=== PATIENT | female | born 1955 | race American Indian/Alaskan Native ===

== ENCOUNTER 2019-06-29 12:48 | Observation (INO) | payer MEDICAID ==
--- NOTE | 2019-06-29 14:50 | Emergency Department Report ---
HPI - General Chief Complaint: Abdominal Pain Time Seen by Provider: 06/29/19 14:48 - HPI HPI: 63-year-old -German female presents to the emergency department via EMS from [facility] with complaint of a 4 to 5-day history of generalized abdominal pain. She also has been having progressively worsening abdominal distention. She denies any chest pain, shortness of breath, fever, nausea, vomiting, dysuria, vaginal bleeding or discharge. However, the patient does say that she has not had a bowel movement in the past 4 days. She currently has stage IV colon and liver cancer for which she is undergoing chemotherapy via transfusion, but she has missed the last session secondary to her incarceration. Patient denies any other past medical history but she has been here about 4 years ago and there appears to be a record of hypertension and COPD. She has not taken anything, nor received anything, for her symptoms prior to arrival today. ED Past Medical Hx - Past Medical History Previous Medical History?: Yes Hx Hypertension: Yes Hx Congestive Heart Failure: No Hx Diabetes: No Hx Renal Disease: Yes (renal insufficiency) Hx Psychiatric Treatment: Yes (Anxiety) Hx Asthma: Yes Hx COPD: No Hx HIV: No Additional medical history: anxiety - Social History Smoking Status: Current Every Day Smoker - Medications Home Medications: Home Medications Medication Instructions Recorded Confirmed Last Taken Type traZODone [Desyrel] 25 mg PO QHS PRN #30 tablet 06/07/14 04/10/15 Unknown Rx Albuterol *Only Ed* [Proventil 2.5 mg IH Q4H PRN #1 box 04/10/15 Unknown Rx 0.5% NEBS] Albuterol INH(or & Nicu Only) 2 puff IH QID PRN #1 inhalation 04/10/15 Unknown Rx [ProAir HFA Inhaler] Amlodipine Besylate [Norvasc] 10 mg PO BID 04/10/15 04/10/15 Unknown History Citalopram Hydrobromide [celeXA] 40 mg PO DAILY 04/10/15 04/10/15 Unknown History HYDROcodone/APAP 5-325 [[place] 1 each PO Q6HR PRN #20 tablet 04/10/15 Unknown Rx 5/325] lisinopriL [Zestril TAB] 20 mg PO QDAY 04/10/15 04/10/15 Unknown History predniSONE [Deltasone] 40 mg PO QDAY 5 Days tab 04/10/15 Unknown Rx ED Review of Systems ROS: Stated complaint: ABDOMINAL PAIN/FLUID ON STOMACH Other details as noted in HPI Comment: All other systems reviewed and negative Constitutional: denies: chills, fever Eyes: denies: eye pain, vision change ENT: denies: ear pain, throat pain Respiratory: denies: cough, shortness of breath Cardiovascular: denies: chest pain, palpitations Gastrointestinal: abdominal pain, constipation. denies: nausea, vomiting Genitourinary: denies: dysuria, discharge Musculoskeletal: denies: back pain, arthralgia Neurological: denies: headache, weakness Physical Exam - Physical Exam Physical Exam: GENERAL: The patient is well-developed well-nourished. HENT: Normocephalic. Atraumatic. Patient has moist mucous membranes. EYES: Extraocular motions are intact. NECK: Supple. Trachea is midline. CHEST/LUNGS: Clear to auscultation. There is no respiratory distress noted. HEART/CARDIOVASCULAR: Regular. There is no tachycardia. There is no murmur. ABDOMEN: Abdomen is soft. Generalized abdominal tenderness to palpation. There is moderate to severe abdominal distention. Patient has normal bowel sounds. SKIN: Skin is warm and dry. NEURO: The patient is awake, alert, and oriented. The patient is cooperative. The patient has no focal neurologic deficits. Normal speech. MUSCULOSKELETAL: There is no tenderness or deformity. There is no evidence of acute injury. ED Medical Decision Making - Lab Data Result diagrams: 06/29/19 15:46 06/29/19 15:46 - Radiology Data Radiology results: report reviewed, image reviewed interpreted by me: Abdominal x-ray shows some nonspecific bowel gas dilatation. CT ABDOMEN AND PELVIS WITHOUT IV CONTRAST INDICATION: Abd pain. COMPARISON: None available. TECHNIQUE: All CT scans at this facility use dose modulation, automated exposure control, iterative reconstruction or weight based dosing, when appropriate, to reduce radiation dose to as low as reasonably achievable. FINDINGS: Lung Bases: There are small bilateral pleural effusions. There are bilateral noncalcified pulmonary nodules which are concerning for metastatic disease. Skeletal System: No acute abnormality. Chronic thoracic and lumbar compression deformities are noted. ABDOMEN: Liver: Within the periphery of the liver, there are 2 heterogeneous hypodense lesions which contain calcifications. The larger the posterior right hepatic lobe measures 4 cm on series 2 image 44. Smaller than the subpleural anterior liver is seen best on image 59 of the same series. Gallbladder: There appears to be a stone in the gallbladder. There is borderline gallbladder wall edema. Bile Ducts: There is no intrahepatic biliary dilatation. The common duct is mildly dilated. Pancreas: No significant abnormality. Spleen: No significant abnormality. Adrenals: No significant abnormality. Right Kidney: Hyperdense lesion in the upper pole cortex is likely a hyperdense cyst but is nonspecific. Left Kidney: No significant abnormality. Upper GI tract: No significant abnormality. Lymph Nodes: No significant adenopathy. Aorta: No significant abnormality. Additional Findings: There is large volume ascites. There is some stranding and nodularity in the mesentery/omentum. There is anasarca. PELVIS: Colon: There is circumferential irregular wall thickening within the distal colon at the rectosigmoid junction with mild surrounding stranding and perirectal adenopathy. Diverticulosis is noted. Urinary Bladder and Distal Ureters: The bladder is decompressed, limiting its evaluation. Appendix: No significant abnormality. Lymph Nodes: No significant adenopathy. Additional Findings: Large volume ascites. There appears to be a left ovarian cyst. IMPRESSION: 1. Small effusions, large volume ascites, and anasarca. It would be difficult to exclude mild carcinomatosis given the nodularity along the peritoneum/omentum. This could be better characterized with intravenous contrast. 2. Metastatic pulmonary nodules in the bases. There are 2 metastatic lesions in the liver. 3. Primary colon carcinoma at the rectosigmoid junction with extension into the mesentery and local adenopathy. - Medical Decision Making This patient presents to the emergency department from [facility] with complaint of abdominal pain, constipation and what appears to be some volume overload. Patient's labs show some renal insufficiency and a urinary tract infection. CT scan of the abdomen and pelvis with IV contrast shows small effusions, large volume ascites and anasarca. There could be some mild carcinomatosis. There are metastatic pulmonary nodules at the bases and 2 metastatic lesions in the liver seen. There is primary colon carcinoma at the rectosigmoid junction with extension into the mesentery and local adenopathy. The patient will be admitted to the hospital for paracentesis and further evaluation and treatment and was accepted for admission by the hospitalist, Dr. Damico. - Differential Diagnosis Ascites, Malignancy, Bowel Obstruction, Constipation Critical Care Time: No Critical care attestation.: If time is entered above; I have spent that time in minutes in the direct care of this critically ill patient, excluding procedure time. ED Disposition Clinical Impression: Renal insufficiency, Anasarca Ascites Qualifiers: Ascites type: malignant Qualified Code(s): R18.0 - Malignant ascites Abdominal pain Qualifiers: Abdominal location: generalized Qualified Code(s): R10.84 - Generalized abdominal pain Disposition: 09 OP ADMIT IP TO THIS HOSP Is pt being admited?: Yes Condition: Fair Time of Disposition: 21:48
[2019-06-29] MEDS ORDERED: MORPHINE 4 MG/1 ML INJ IV ONE (14:51)
--- NOTE | 2019-06-29 15:22 | XRay Report ---
ABDOMEN 2 VIEWS INDICATION / CLINICAL INFORMATION: Abd pain. COMPARISON: None available. FINDINGS: BOWEL: Multiple loops of slightly dilated gastrointestinal tract without convincing evidence of obstr uction or ileus. FREE AIR / EXTRALUMINAL GAS: None seen. CALCIFICATIONS: No significant abnormal calcifications. ADDITIONAL FINDINGS: None. LUNGS: Visualized lungs show no significant abnormality. SKELETAL STRUCTURES: No significant abnormality. IMPRESSION: 1. Abnormal but nonspecific intestinal gas pattern Signer Name: Prashant Neal MD Signed: 06/29/2019 3:18 PM Workstation Name: [id number]
[2019-06-29 15:46] LABS: Bacteria,Urine 2+ /HPF (Negative); Bilirubin,Urine NEG (Negative); Blood,Urine MOD (Negative); Color,Urine Amber (Yellow); Mucus,Urine 2+ /HPF; Urobilinogen,Urine < 2.0 mg/dL (<2.0)
[2019-06-29 15:47] LABS: WBC,Urine > 182.0 /HPF (0.0-6.0)
[2019-06-29] MEDS ORDERED: cefTRIAXone/NS 1 GM/50 ML 1 GM/50 ML BAG IV ONE (15:50)
[2019-06-29 17:00] LABS: Basophils % (Auto) 0.2 % (0.0-1.8); Eosinophils % (Auto) 0.2 % (0.0-4.3); Hematocrit 33.9 % (30.3-42.9); Hemoglobin 11.2 gm/dl (10.1-14.3); Lymphocytes # (Auto) 0.6 K/mm3 (1.2-5.4); Lymphocytes % (Auto) 6.3 % (13.4-35.0); Mean Corpuscular HGB Conc 33 % (30-34); Mean Corpuscular Volume 85 fl (79-97); Monocytes % (Auto) 9.7 % (0.0-7.3); Platelet Count 481 K/mm3 (140-440); Red Blood Count 3.97 M/mm3 (3.65-5.03); Red Cell Distribution Width 15.9 % (13.2-15.2)
[2019-06-29 17:10] LABS: INR 1.16 (0.87-1.13)
[2019-06-29 17:23] LABS: Albumin 2.4 g/dL (3.9-5); Bilirubin,Direct 0.3 mg/dL (0-0.2); Calcium 8.7 mg/dL (8.4-10.2)
[2019-06-29 17:29] LABS: Alanine Aminotransferase < 5 units/L (7-56)
--- NOTE | 2019-06-29 19:32 | Cat Scan Report ---
CT ABDOMEN AND PELVIS WITHOUT IV CONTRAST INDICATION: Abd pain. COMPARISON: None available. TECHNIQUE: All CT scans at this facility use dose modulation, automated exposure control, iterative reconstructi on or weight based dosing, when appropriate, to reduce radiation dose to as low as reasonably achieva ble. FINDINGS: Lung Bases: There are small bilateral pleural effusions. There are bilateral noncalcified pulmonary n odules which are concerning for metastatic disease. Skeletal System: No acute abnormality. Chronic thoracic and lumbar compression deformities are noted . ABDOMEN: Liver: Within the periphery of the liver, there are 2 heterogeneous hypodense lesions which contain c alcifications. The larger the posterior right hepatic lobe measures 4 cm on series 2 image 44. Smalle r than the subpleural anterior liver is seen best on image 59 of the same series. Gallbladder: There appears to be a stone in the gallbladder. There is borderline gallbladder wall mer ma. Bile Ducts: There is no intrahepatic biliary dilatation. The common duct is mildly dilated. Pancreas: No significant abnormality. Spleen: No significant abnormality. Adrenals: No significant abnormality. Right Kidney: Hyperdense lesion in the upper pole cortex is likely a hyperdense cyst but is nonspecif ic. Left Kidney: No significant abnormality. Upper GI tract: No significant abnormality. Lymph Nodes: No significant adenopathy. Aorta: No significant abnormality. Additional Findings: There is large volume ascites. There is some stranding and nodularity in the mes entery/omentum. There is anasarca. PELVIS: Colon: There is circumferential irregular wall thickening within the distal colon at the rectosigmoid junction with mild surrounding stranding and perirectal adenopathy. Diverticulosis is noted. Urinary Bladder and Distal Ureters: The bladder is decompressed, limiting its evaluation. Appendix: No significant abnormality. Lymph Nodes: No significant adenopathy. Additional Findings: Large volume ascites. There appears to be a left ovarian cyst. IMPRESSION: 1. Small effusions, large volume ascites, and anasarca. It would be difficult to exclude mild carcin omatosis given the nodularity along the peritoneum/omentum. This could be better characterized with i ntravenous contrast. 2. Metastatic pulmonary nodules in the bases. There are 2 metastatic lesions in the liver. 3. Primary colon carcinoma at the rectosigmoid junction with extension into the mesentery and local a denopathy. Signer Name: Elmer Guzman MD Signed: 06/29/2019 7:27 PM Workstation Name: [id number]
[2019-06-29] MEDS ORDERED: MAGNESIUM HYDROXIDE (MOM) ORAL LIQD UDC PO PRN (22:22)
[2019-06-29] MEDS ORDERED: ACETAMINOPHEN 325 MG TAB PO PRN (22:22)
[2019-06-29] MEDS ORDERED: ONDANSETRON 4 MG/2 ML INJ IV PRN (22:22)
--- NOTE | 2019-06-29 23:08 | History and Physical Report ---
History of Present Illness Date of examination: 06/29/19 Date of admission: 06/29/19 21:48 Chief complaint: Abdominal pain/Distension History of present illness: 63 year old female who is currently incarcerated with known history of colon and liver cancer seen in the ER complaining of abdominal pain. Abdominal pain is generalized . This has been ongoing for the past few days. She has had some nausea but no vomiting. She states she has not had a bowel movement in 4-5 days. Denies any fever or chills. Patient has been on chemotherapy for the liver and colon cancer in the past however she has not continued with chemotherapy because of her current incarceration. Evaluation in the ER reveals ascites. Urinalysis reveals urinary tract infection. She is also found to have some renal insufficiency. Past History Past Medical History: cancer (h/o liver and colon ca.), COPD, hypertension Past Surgical History: No surgical history Social history: smoking (former smoker) Family history: no significant family history Medications and Allergies Allergies Allergy/AdvReac Type Severity Reaction Status Date / Time No Known Allergies Allergy Verified 06/29/19 13:53 Home Medications Medication Instructions Recorded Confirmed Last Taken Type traZODone [Desyrel] 25 mg PO QHS PRN #30 tablet 06/07/14 04/10/15 Unknown Rx Albuterol *Only Ed* [Proventil 2.5 mg IH Q4H PRN #1 box 04/10/15 Unknown Rx 0.5% NEBS] Albuterol INH(or & Nicu Only) 2 puff IH QID PRN #1 inhalation 04/10/15 Unknown Rx [ProAir HFA Inhaler] Amlodipine Besylate [Norvasc] 10 mg PO BID 04/10/15 04/10/15 Unknown History Citalopram Hydrobromide [celeXA] 40 mg PO DAILY 04/10/15 04/10/15 Unknown History HYDROcodone/APAP 5-325 [[place] 1 each PO Q6HR PRN #20 tablet 04/10/15 Unknown Rx 5/325] lisinopriL [Zestril TAB] 20 mg PO QDAY 04/10/15 04/10/15 Unknown History predniSONE [Deltasone] 40 mg PO QDAY 5 Days tab 04/10/15 Unknown Rx Active Meds: Active Medications Acetaminophen (Tylenol) 650 mg PO Q4H PRN PRN Reason: Pain MILD(1-3)/Fever >100.5/GAMBLE Ceftriaxone Sodium (Rocephin/Ns 1 Gm/50 Ml) 1 gm in 50 mls @ 100 mls/hr IV Q24 HR MAGALIS; Protocol Magnesium Hydroxide (Milk Of Magnesia) 30 ml PO Q4H PRN PRN Reason: Constipation Morphine Sulfate (Morphine) 2 mg IV Q4H PRN PRN Reason: Pain, Moderate (4-6) Ondansetron HCl (Zofran) 4 mg IV Q8H PRN PRN Reason: Nausea And Vomiting Sodium Chloride (Sodium Chloride Flush Syringe 10 Ml) 10 ml IV BID MAGALIS Sodium Chloride (Sodium Chloride Flush Syringe 10 Ml) 10 ml IV PRN PRN PRN Reason: LINE FLUSH Review of Systems Constitutional: no fever, no chills Ears, nose, mouth and throat: no nasal congestion, no sore throat Cardiovascular: no chest pain, no palpitations Respiratory: no cough, no shortness of breath Gastrointestinal: abdominal pain, constipation, no nausea, no vomiting, no diarrhea Genitourinary Female: no dysuria, no hematuria Musculoskeletal: no neck pain, no low back pain Exam - Constitutional Vitals: Temp Pulse Resp BP Pulse Ox 98.3 F 104 H 16 93/51 90 06/29/19 14:54 06/29/19 22:45 06/29/19 22:45 06/29/19 22:45 06/29/19 22:45 General appearance: Present: no acute distress, well-nourished - EENT Eyes: Present: PERRL, EOM intact ENT: hearing intact, clear oral mucosa, dentition normal - Neck Neck: Present: supple, normal ROM - Respiratory Respiratory effort: normal Respiratory: bilateral: CTA - Cardiovascular Rhythm: regular Heart Sounds: Present: S1 & S2 - Extremities Extremities: no ischemia, pulses intact, No edema, Full ROM Peripheral Pulses: within normal limits - Abdominal General gastrointestinal: Present: soft, non-tender, distended, normal bowel sounds, other (fluid thrill +) - Integumentary Integumentary: Present: clear, warm, dry - Musculoskeletal Musculoskeletal: strength equal bilaterally - Psychiatric Psychiatric: appropriate mood/affect, intact judgment & insight, cooperative - Neurologic Neurologic: CNII-XII intact, moves all extremities Results - Labs CBC & Chem 7: 06/29/19 15:46 06/29/19 15:46 Labs: Abnormal lab results 06/29/19 06/29/19 06/29/19 Range/Units 15:28 15:46 15:46 RDW 15.9 H (13.2-15.2) % Plt Count 481 H (140-440) K/mm3 Lymph % (Auto) 6.3 L (13.4-35.0) % [place] % (Auto) 9.7 H (0.0-7.3) % Lymph # 0.6 L (1.2-5.4) K/mm3 [place] # 1.0 H (0.0-0.8) K/mm3 Seg Neutrophils % 83.6 H (40.0-70.0) % Seg Neutrophils # 8.5 H (1.8-7.7) K/mm3 PT 15.0 H (12.2-14.9) Sec. INR 1.16 H (0.87-1.13) BUN (7-17) mg/dL Creatinine (0.7-1.2) mg/dL Direct Bilirubin (0-0.2) mg/dL ALT (7-56) units/L Total Protein (6.3-8.2) g/dL Albumin (3.9-5) g/dL Lipase (13-60) units/L Urine WBC (Auto) > 182.0 H (0.0-6.0) /HPF U Epithel Cells (Auto) 39.0 H (0-13.0) /HPF 06/29/19 06/29/19 Range/Units 15:46 15:46 RDW (13.2-15.2) % Plt Count (140-440) K/mm3 Lymph % (Auto) (13.4-35.0) % [place] % (Auto) (0.0-7.3) % Lymph # (1.2-5.4) K/mm3 [place] # (0.0-0.8) K/mm3 Seg Neutrophils % (40.0-70.0) % Seg Neutrophils # (1.8-7.7) K/mm3 PT (12.2-14.9) Sec. INR (0.87-1.13) BUN 29 H (7-17) mg/dL Creatinine 1.7 H (0.7-1.2) mg/dL Direct Bilirubin 0.3 H (0-0.2) mg/dL ALT < 5 L (7-56) units/L Total Protein 5.6 L (6.3-8.2) g/dL Albumin 2.4 L (3.9-5) g/dL Lipase 4 L (13-60) units/L Urine WBC (Auto) (0.0-6.0) /HPF U Epithel Cells (Auto) (0-13.0) /HPF Assessment and Plan - Patient Problems (1) Abdominal pain Current Visit: Yes Status: Acute Qualifiers: Abdominal location: generalized Qualified Code(s): R10.84 - Generalized abdominal pain Plan to address problem: Possibly secondary to ascites causing abdominal distention. Patient has known history of colon and liver cancer. She will be placed on analgesic medication as needed for pain control. (2) Ascites Current Visit: Yes Status: Acute Qualifiers: Ascites type: malignant Qualified Code(s): R18.0 - Malignant ascites Plan to address problem: Patient will need paracentesis. Will consider consulting interventional radiology for paracentesis later in the a.m. (3) Renal insufficiency Current Visit: Yes Status: Acute Plan to address problem: We will monitor BUN and creatinine. We will also consider nephrology consult (4) DVT prophylaxis Current Visit: No Status: Chronic Plan to address problem: Patient placed on sequential compression device. (5) Full code status Current Visit: Yes Status: Acute
[2019-06-30] MEDS: MORPHINE 2 MG/1 ML INJ IV PRN (04:59)
[2019-06-30 11:01] LABS: Basophils % (Auto) 0.1 % (0.0-1.8); Eosinophils % (Auto) 0.3 % (0.0-4.3); Hematocrit 33.7 % (30.3-42.9); Hemoglobin 10.7 gm/dl (10.1-14.3); Lymphocytes # (Auto) 0.4 K/mm3 (1.2-5.4); Lymphocytes % (Auto) 3.4 % (13.4-35.0); Mean Corpuscular HGB Conc 32 % (30-34); Mean Corpuscular Volume 86 fl (79-97); Platelet Count 449 K/mm3 (140-440); Red Cell Distribution Width 15.3 % (13.2-15.2)
[2019-06-30 11:09] LABS: INR 1.14 (0.87-1.13)
[2019-06-30 11:17] LABS: Calcium 8.6 mg/dL (8.4-10.2)
[2019-06-30] MEDS: cefTRIAXone/NS 1 GM/50 ML 1 GM/50 ML BAG IV SCH (11:30)
--- NOTE | 2019-06-30 13:10 | Progress Note ---
Assessment and Plan /Abdominal pain Possibly secondary to ascites causing abdominal distention and costipation. Patient has known history of metastatic colon and liver cancer. She will be placed on analgesic medication as needed for pain control. order for paracentesis, ascitis fluid for cell count and Cx for possible SBP /Ascites with possible SBP Patient will need paracentesis. ordered for US guided paracentesis today ordered for ascitic fluid gm stain, cx - cont abx for now / [place] - ATN vs vasomotor nephropathy We will monitor BUN and creatinine. nephrology consulted, ordered renal US Cr was 0.6 on May/2019 per her oncologist /Stage IV colon cancer with metastasis to liver - outpt f/u with Dr Guzmán /Moderate PCM from underlying malignancy - nutrition supplement / DVT prophylaxis Patient placed on sequential compression device. /Full code status Brief history: 63-year-old with medical history significant for stage IV colon cancer and liver cancer was on chemotherapy for same however has been recently incarcerated unable to get chemotherapy presented with complaints of abdominal pain and abdominal distention. Her Cr was 0.6 on May/2019 per her oncologist. she is admitted for ascitis and [place]. Subjective Date of service: 06/30/19 Interval history: Patient seen and examined c/o abdominal pain, had paracentesis today tolerating diet Objective - Constitutional General appearance: Present: mild distress - EENT Eyes: PERRL, EOM intact ENT: hearing intact, clear oral mucosa Ears: bilateral: normal - Neck Neck: supple, normal ROM - Respiratory Respiratory effort: normal Respiratory: bilateral: CTA - Cardiovascular Rhythm: regular Heart Sounds: Present: S1 & S2. Absent: gallop, rub Extremities: pulses intact, No edema, normal color, Full ROM - Gastrointestinal General gastrointestinal: Present: soft, tender (no sign opf peritoneal irritati on), non-distended, normal bowel sounds - Genitourinary Female genitourinary: normal - Integumentary Integumentary: clear, warm, dry - Musculoskeletal Musculoskeletal: 1, strength equal bilaterally - Neurologic Neurologic: moves all extremities - Psychiatric Psychiatric: memory intact, appropriate mood/affect, intact judgment & insight - Labs CBC & Chem 7: 06/30/19 10:44 07/01/19 10:02 Labs: Abnormal lab results 06/29/19 06/29/19 06/29/19 Range/Units 15:28 15:46 15:46 WBC (4.5-11.0) K/mm3 RDW 15.9 H (13.2-15.2) % Plt Count 481 H (140-440) K/mm3 Lymph % (Auto) 6.3 L (13.4-35.0) % [place] % (Auto) 9.7 H (0.0-7.3) % Lymph # 0.6 L (1.2-5.4) K/mm3 [place] # 1.0 H (0.0-0.8) K/mm3 Seg Neutrophils % 83.6 H (40.0-70.0) % Seg Neutrophils # 8.5 H (1.8-7.7) K/mm3 PT 15.0 H (12.2-14.9) Sec. INR 1.16 H (0.87-1.13) APTT (24.2-36.6) Sec. BUN (7-17) mg/dL Creatinine (0.7-1.2) mg/dL Glucose (65-100) mg/dL Direct Bilirubin (0-0.2) mg/dL ALT (7-56) units/L Total Protein (6.3-8.2) g/dL Albumin (3.9-5) g/dL Lipase (13-60) units/L Urine WBC (Auto) > 182.0 H (0.0-6.0) /HPF U Epithel Cells (Auto) 39.0 H (0-13.0) /HPF 06/29/19 06/29/19 06/30/19 Range/Units 15:46 15:46 10:44 WBC 12.4 H (4.5-11.0) K/mm3 RDW 15.3 H (13.2-15.2) % Plt Count 449 H (140-440) K/mm3 Lymph % (Auto) 3.4 L (13.4-35.0) % [place] % (Auto) 8.0 H (0.0-7.3) % Lymph # 0.4 L (1.2-5.4) K/mm3 [place] # 1.0 H (0.0-0.8) K/mm3 Seg Neutrophils % 88.2 H (40.0-70.0) % Seg Neutrophils # 10.9 H (1.8-7.7) K/mm3 PT (12.2-14.9) Sec. INR (0.87-1.13) APTT (24.2-36.6) Sec. BUN 29 H (7-17) mg/dL Creatinine 1.7 H (0.7-1.2) mg/dL Glucose (65-100) mg/dL Direct Bilirubin 0.3 H (0-0.2) mg/dL ALT < 5 L (7-56) units/L Total Protein 5.6 L (6.3-8.2) g/dL Albumin 2.4 L (3.9-5) g/dL Lipase 4 L (13-60) units/L Urine WBC (Auto) (0.0-6.0) /HPF U Epithel Cells (Auto) (0-13.0) /HPF 06/30/19 06/30/19 Range/Units 10:44 10:44 WBC (4.5-11.0) K/mm3 RDW (13.2-15.2) % Plt Count (140-440) K/mm3 Lymph % (Auto) (13.4-35.0) % [place] % (Auto) (0.0-7.3) % Lymph # (1.2-5.4) K/mm3 [place] # (0.0-0.8) K/mm3 Seg Neutrophils % (40.0-70.0) % Seg Neutrophils # (1.8-7.7) K/mm3 PT (12.2-14.9) Sec. INR 1.14 H (0.87-1.13) APTT 37.0 H (24.2-36.6) Sec. BUN 36 H (7-17) mg/dL Creatinine 1.7 H (0.7-1.2) mg/dL Glucose 106 H (65-100) mg/dL Direct Bilirubin (0-0.2) mg/dL ALT (7-56) units/L Total Protein (6.3-8.2) g/dL Albumin (3.9-5) g/dL Lipase (13-60) units/L Urine WBC (Auto) (0.0-6.0) /HPF U Epithel Cells (Auto) (0-13.0) /HPF - Imaging and cardiology Abdominal x-ray: report reviewed CT scan - abdomen: report reviewed
--- NOTE | 2019-06-30 15:31 | Consultation ---
History of Present Illness - Reason for Consult acute renal failure - History of Present Illness 63-year-old with medical history significant for stage IV colon cancer and liver cancer was on chemotherapy for same however has been recently incarcerated unable to get chemotherapy presented with complaints of abdominal pain and abdominal distention. She reports constipation though previously experienced diarrhea denies any nausea vomiting. She denies any NSAID use. She denies any decreased urine output. She denies any fevers chills denies any headaches. She denies any hematuria or bleeding from any orifice. She denies any shortness of breath Past History Past Medical History: cancer (h/o liver and colon ca.), COPD, hypertension Past Surgical History: No surgical history Social history: smoking (former smoker) Family history: no significant family history Medications and Allergies Allergies Allergy/AdvReac Type Severity Reaction Status Date / Time No Known Allergies Allergy Verified 06/29/19 13:53 Home Medications Medication Instructions Recorded Confirmed Last Taken Type traZODone [Desyrel] 25 mg PO QHS PRN #30 tablet 06/07/14 04/10/15 Unknown Rx Albuterol *Only Ed* [Proventil 2.5 mg IH Q4H PRN #1 box 04/10/15 Unknown Rx 0.5% NEBS] Albuterol INH(or & Nicu Only) 2 puff IH QID PRN #1 inhalation 04/10/15 Unknown Rx [ProAir HFA Inhaler] Amlodipine Besylate [Norvasc] 10 mg PO BID 04/10/15 04/10/15 Unknown History Citalopram Hydrobromide [celeXA] 40 mg PO DAILY 04/10/15 04/10/15 Unknown History HYDROcodone/APAP 5-325 [[place] 1 each PO Q6HR PRN #20 tablet 04/10/15 Unknown Rx 5/325] lisinopriL [Zestril TAB] 20 mg PO QDAY 04/10/15 04/10/15 Unknown History predniSONE [Deltasone] 40 mg PO QDAY 5 Days tab 04/10/15 Unknown Rx Active Meds: Active Medications Acetaminophen (Tylenol) 650 mg PO Q4H PRN PRN Reason: Pain MILD(1-3)/Fever >100.5/GAMBLE Ceftriaxone Sodium (Rocephin/Ns 1 Gm/50 Ml) 1 gm in 50 mls @ 100 mls/hr IV Q24HR MAGALIS; Protocol Last Admin: 06/30/19 11:30 Dose: 100 mls/hr Documented by: Magnesium Hydroxide (Milk Of Magnesia) 30 ml PO Q4H PRN PRN Reason: Constipation Morphine Sulfate (Morphine) 2 mg IV Q4H PRN PRN Reason: Pain, Moderate (4-6) Last Admin: 06/30/19 04:59 Dose: 2 mg Documented by: Ondansetron HCl (Zofran) 4 mg IV Q8H PRN PRN Reason: Nausea And Vomiting Last Admin: 06/30/19 04:59 Dose: 4 mg Documented by: Sodium Chloride (Sodium Chloride Flush Syringe 10 Ml) 10 ml IV BID MAGALIS Last Admin: 06/30/19 11:30 Dose: 10 ml Documented by: Sodium Chloride (Sodium Chloride Flush Syringe 10 Ml) 10 ml IV PRN PRN PRN Reason: LINE FLUSH Review of Systems Constitutional: weight gain, anorexia, fatigue, weakness, chronic pain, no weight loss, no fever, no chills Ears, nose, mouth and throat: no deferred, no ear pain, no ear discharge Breasts: no deferred, no normal, no change in shape Cardiovascular: no chest pain, no orthopnea, no palpitations Respiratory: no cough, no cough with sputum Gastrointestinal: abdominal pain, constipation, no nausea, no vomiting, no diarrhea Musculoskeletal: no neck stiffness, no neck pain, no shooting arm pain Integumentary: no deferred, no rash, no pruritis Neurological: no head injury, no transient paralysis Psychiatric: no anxiety, no memory loss Endocrine: no cold intolerance, no heat intolerance Exam - Vital Signs Vital signs: Vital Signs Temp Pulse Resp BP Pulse Ox 98.3 F 60 16 144/69 98 06/29/19 14:54 06/29/19 14:54 06/29/19 14:54 06/29/19 14:54 06/29/19 14:54 - General Appearance General appearance: cachectic, chronically ill, frail EENT: ATNC, PERRL Respiratory: Clear to Ascultation Heart: regular, S1S2 Gastrointestinal: Present: tenderness, distended, masses, organomegaly Integumentary: no rash Neurologic: alert and oriented x3, CN 3-12 intact Psychiatric: depressed Results - Lab Results 06/30/19 10:44 06/30/19 10:44 Most recent lab results Calcium 8.6 mg/dL (8.4-10.2) 06/30/19 10:44 - Image Kidney/bladder ultrasound: other (Reviewed abdominal CT with colon mass and liver lesions) Assessment and Plan - Patient Problems (1) Acute renal failure Current Visit: No Status: Acute Plan to address problem: Acute renal failure Baseline creatinine 0.9 in 2014 Current creatinine 1.7 I reviewed urinalysis which shows elevated specific gravity and some proteinuria Has some underlying hypertension Unclear which chemotherapy regimen as this may be associated with renal issues as well Cautious hydration with intravenous fluids for now Obtain renal ultrasound Recheck renal function panel (2) Malignancy Current Visit: Yes Status: Acute Plan to address problem: Liver and colon malignancy Needs oncology follow-up Previously received chemotherapy No evidence of hydronephrosis on CT (3) Ascites Current Visit: Yes Status: Acute Qualifiers: Ascites type: malignant Qualified Code(s): R18.0 - Malignant ascites Plan to address problem: Malignant ascites Has some abdominal pain Status post therapeutic paracentesis today (4) HTN (hypertension) Current Visit: No Status: Acute Plan to address problem: Hypertension Hold MARTHA inhibitor Need accurate list of current home meds Blood pressure at goal
--- NOTE | 2019-06-30 18:39 | Ultrasound Report ---
ULTRASOUND RENAL INDICATION / CLINICAL INFORMATION: kidney cyst. COMPARISON: CT dated 06/29/19 FINDINGS: RIGHT KIDNEY: Length = 9.8 cm. - Echogenicity: Mildly echogenic. - Cortical Thickness: Normal. - Hydronephrosis: None. - Cyst or mass: Hyperdense lesion in the upper pole on recent CT was not visualized on this study. - Stones: None seen. LEFT KIDNEY: Length = 11.3 cm. - Echogenicity: Normal. - Cortical Thickness: Normal. - Hydronephrosis: None. - Cyst or mass: No significant abnormality. - Stones: None seen. URINARY BLADDER: Mildly distended. FREE FLUID: Trace free fluid. ADDITIONAL FINDINGS: Hyperechoic lesion in the right lobe of the liver measuring 4.9 x 4.6 x 5.10 cm corresponds to the CT abnormality. Small gallstones in the gallbladder. IMPRESSION: 1. Small hyperdense lesion in the right kidney on prior CT was not visualized on this study. 2. Heterogeneous mass in the right lobe of the liver corresponding to CT finding. 3. Cholelithiasis. Signer Name: Juan Middleton MD Signed: 06/30/2019 6:35 PM Workstation Name: [id number]
[2019-06-30] MEDS: SODIUM CHLORIDE 0.9% 1000 ML 1,000 ML IV SCH ×2 (20:59→21:13)
[2019-06-30 21:16] LABS: Total Cells Counted 100 /mm3
[2019-07-01] MEDS ORDERED: HYDROcodone/ACETAMINOPHEN 5-325 MG TAB PO PRN (00:52)
[2019-07-01] MEDS: MORPHINE 2 MG/1 ML INJ IV PRN (05:45)
--- NOTE | 2019-07-01 08:00 | Ultrasound Report ---
ULTRASOUND-GUIDED PARACENTESIS HISTORY: ascitis. PROCEDURE: The risks (including but not limited to bleeding, infection, and bowel injury) and benefi ts were explained to the patient and informed consent was obtained. A time out procedure was perform ed. Ultrasound was used to evaluate the abdomen and locate the largest ascites fluid pocket. Once the sk in was marked, the procedure site was prepped and draped in the usual sterile fashion and lidocaine w as used for local anesthesia. A skin humberto was made and a 5 Kosovan centesis catheter was placed. The patient was monitored closely throughout the procedure, and a total of 6100 mL of clear yellow fluid was aspirated. 120 cc of fluid was saved in case labs were needed. No orders for laboratory analysi s were submitted. The patient tolerated the procedure well with no complications. IMPRESSION: Successful ultrasound-guided paracentesis as described. Signer Name: Praveen Nielsen Jr, MD Signed: 07/01/2019 7:56 AM Workstation Name: [id number]
[2019-07-01] MEDS: cefTRIAXone/NS 1 GM/50 ML 1 GM/50 ML BAG IV SCH (09:31)
[2019-07-01 10:47] LABS: BUN/Creatinine Ratio 28; Blood Urea Nitrogen 28 mg/dL (7-17); Calcium 8.2 mg/dL (8.4-10.2); Hemolysis Index 0
--- NOTE | 2019-07-01 11:08 | Progress Note ---
Subjective Interval history: Patient was seen today for follow-up of multiple renal related issues No complaints of any chest pain pressure or shortness of breath patient is feeling much better creatinine has normalized to 1.0 Interdisciplinary notes that also reviewed Events of 24 hours vitals labs intake output medications were reviewed Past medical history: Reviewed Family history: Reviewed Social history: Reviewed Allergies: Reviewed Physical examination: Vitals: Reviewed HEENT: No pallor or icterus oral mucosa moist Neck: Supple no JVD no thyromegaly Chest: Bilateral clear to auscultation anteriorly Heart: Regular rate and rhythm S1-S2 heard no S3-S4 Abdomen: Soft nontender no voluntary guarding rigidity rebound Extremity: Dry skin less than 1+ peripheral edema Psychiatric: No evidence of agitation and aggression noted Dermatology: No petechial rashes Labs and x-rays: Reviewed from today Assessment and plan Acute kidney injury currently in remission creatinine has come down to 1.0 which was 1.7 yesterday, patient was advised to make an appointment for follow-up in the office Patient's baseline creatinine is 0.9 in 2014 Patient was taking lisinopril in the outpatient setting Discussed about renal diet need to make a follow-up appointment in the office Renal ultrasonogram shows small hyperdense lesion in the right kidney and a mass in the right lobe of the liver and gallstone please consider urology evaluation for this patient due to abnormal imaging of the kidney, patient was made aware about these findings. Currently being treated for stage IV colon cancer and liver cancer was on chemotherapy, we will need to follow up with oncologist Has history of COPD, hypertension, Advised the patient to make an appointment for follow-up in our office upon discharge Objective - Vital Signs Vital signs: Vital Signs - 12hr 07/01/19 05:53 Temperature 98.5 F Pulse Rate 96 H Respiratory 16 Rate Blood Pressure 106/61 [Right] O2 Sat by Pulse 90 Oximetry - Lab 06/30/19 10:44 07/01/19 10:02 Most recent lab results Calcium 8.2 mg/dL (8.4-10.2) L 07/01/19 10:02 Medications & Allergies - Medications Allergies/Adverse Reactions: Allergies No Known Allergies Allergy (Verified 06/29/19 13:53) Home Medications: Home Medications Medication Instructions Recorded Confirmed Last Taken Type Albuterol *Only Ed* [Proventil 2.5 mg IH Q4H PRN #1 box 04/10/15 06/30/19 Unknown Rx 0.5% NEBS] Albuterol INH(or & Nicu Only) 2 puff IH QID PRN #1 inhalation 04/10/15 06/30/19 Unknown Rx [ProAir HFA Inhaler] HYDROcodone/APAP 5-325 [[place] 1 each PO Q6HR PRN #20 tablet 04/10/15 06/30/19 Unknown Rx 5/325] lisinopriL [Zestril TAB] 20 mg PO QDAY 04/10/15 06/30/19 Unknown History predniSONE [Deltasone] 40 mg PO QDAY 5 Days tab 04/10/15 06/30/19 Unknown Rx Morphine [Morphine TAB] 30 mg PO Q12H PRN 06/30/19 06/30/19 Unknown History Active Medications: Generic Name Dose Route Start Last Admin Trade Name Freq PRN Reason Stop Dose Admin Acetaminophen 650 mg 06/29/19 22:22 06/30/19 20:59 Tylenol PO 650 mg Q4H PRN Administration Pain MILD(1-3)/Fever >100.5/GAMBLE Acetaminophen/Hydrocodone Bitart 1 each 07/01/19 00:52 [place] 5/325 PO Q6H PRN PAIN(4-6) Ceftriaxone Sodium 1 gm in 50 mls @ 100 mls/hr 06/30/19 10:00 07/01/19 09:31 Rocephin/Ns 1 Gm/50 Ml IV 100 mls/hr Q24HR MAGALIS Administration Protocol Sodium Chloride 1,000 mls @ 100 mls/hr 06/30/19 15:45 06/30/19 21:13 Nacl 0.9% 1000 Ml IV 100 mls/hr DIRECT MAGALIS Administration Magnesium Hydroxide 30 ml 06/29/19 22:22 Milk Of Magnesia PO Q4H PRN Constipation Morphine Sulfate 2 mg 06/29/19 22:22 07/01/19 05:45 Morphine IV 2 mg Q4H PRN Administration Pain, Moderate (4-6) Ondansetron HCl 4 mg 06/29/19 22:22 06/30/19 04:59 Zofran IV 4 mg Q8H PRN Administration Nausea And Vomiting Sodium Chloride 10 ml 06/30/19 10:00 07/01/19 09:31 Sodium Chloride Flush Syringe 10 Ml IV 10 ml BID MAGALIS Administration Sodium Chloride 10 ml 06/29/19 22:22 Sodium Chloride Flush Syringe 10 Ml IV PRN PRN LINE FLUSH
[2019-07-01] MEDS: SODIUM CHLORIDE 0.9% 1000 ML 1,000 ML IV SCH (11:34)
--- NOTE | 2019-07-01 15:00 | Discharge Summary ---
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 Her Cr was 0.6 on May/2019 per her oncologist. she is admitted for ascitis and EVENS. Discharge diagnosis and Mx: /Abdominal pain Possibly secondary to ascites causing abdominal distention,costipation and underlying metastatic colon and liver cancer. She will be placed on analgesic medication as needed for pain control. ordered for paracentesis drained 6.1 L fluid, ascitis fluid for cell count and Cx for possible SBP /Ascites with possible SBP ordered for ascitic fluid gm stain, cx - will treat with abx for possible SBP as fluid has lots of polymorphonuclear cells / EVENS - ATN vs vasomotor nephropathy We will monitor BUN and creatinine. nephrology consulted, ordered renal US Cr was 0.6 on May/2019 per her oncologist /Stage IV colon cancer with metastasis to liver - outpt f/u with Dr Guzmán /Moderate PCM from underlying malignancy - nutrition supplement /UTI, will treat with keflex outpt /SIRS, likely from possible SBP vs UTI (cx not convincing) vs underlying malignancy - treat empirically with abx, f/u outpt with Dr Guzmán / DVT prophylaxis Patient placed on sequential compression device. /Full code status Disposition: [id number] HOME UNDER [facility] Time spent for discharge: 34 minutes Core Measure Documentation - Palliative Care Palliative Care/ Comfort Measures: Not Applicable - Core Measures Any of the following diagnoses?: none Exam - Constitutional Vitals: Temp Pulse Resp BP Pulse Ox 98 F 104 H 12 128/66 92 07/01/19 12:22 07/01/19 12:22 07/01/19 12:22 07/01/19 12:22 07/01/19 12:22 Plan Activity: advance as tolerated Weight Bearing Status: Weight Bear as Tolerated Diet: regular Follow up with: PRIMARY CARE, [Primary Care Provider] - 3-5 Days JAYDEN GUZMÁN MD [Staff Physician] - 7 Days Prescriptions: cephALEXin [Keflex] 500 mg PO Q6HR #24 capsule Furosemide [Lasix TAB] 40 mg PO QDAY #30 tablet
[2019-07-01 16:19] VITALS: BP 125/62
== END 2019-07-01 17:43 | disposition home health service (06) ==
LOC: ED 12:48 → EEVIPCON 21:48 → 3A 21:48
PROVIDERS: ADMIT Internal Medicine Geriatric Medicine; ATTEND Internal Medicine
DX: R18.8 Other ascites (principal); N28.9 Disorder of kidney and ureter, unspecified; R10.9 Unspecified abdominal pain; I10 Essential (primary) hypertension; J44.9 Chronic obstructive pulmonary disease, unspecified; N17.9 Acute kidney failure, unspecified; N39.0 Urinary tract infection, site not specified; F41.9 Anxiety disorder, unspecified; F17.200 Nicotine dependence, unspecified, uncomplicated; Z85.05 Personal history of malignant neoplasm of liver; Z85.038 Personal history of other malignant neoplasm of large intestine
CPT/HCPCS: 36415; 49083; 74019; 74176; 76770; 80048; 80076; 81001; 83690; 85025; 85610; 85730; 87086; 87116; 89051; 96365; 96366; 96375; 96376; 99285; 99406; G0378; J0696; J2270; J2405; J7030